=== PATIENT | male | born 1950 | race Caucasian/White ===

== ENCOUNTER 2019-12-28 20:32 | Emergency (ER) | payer BC ==
[~2019-12-28] VITALS: Ht 175.3 cm; Wt 73.5 kg
[2019-12-28] MEDS ORDERED: IV NORMAL SALINE 1000 ML BAG IV ONE (20:45)
[2019-12-28] MEDS ORDERED: ONDANSETRON 4 MG/2 ML VIAL IV ONE (21:00)
[2019-12-28] MEDS ORDERED: IV NS 1000 ML 1,000 ML IV ONE (21:00)
[2019-12-28] MEDS ORDERED: KETOROLAC TROMETHAMINE 30 MG INJ IVP ONE (21:00)
[2019-12-28 21:13] LABS: BASOPHILS % (AUTO) 0.2 % (0.0-2.0); EOSINOPHILS # (AUTO) 0.1 K/uL (0.0-0.7); EOSINOPHILS % (AUTO) 0.7 % (0.0-7.0); HEMATOCRIT 42.4 % (36.7-47.1); HEMOGLOBIN 14.7 g/dL (12.5-16.3); LYMPHOCYTES % (AUTO) 28.4 % (20.5-51.5); MEAN CORPUSCULAR HEMOGLOBIN 30.2 uug (23.8-33.4); MEAN CORPUSCULAR HGB CONC 35 g/dL (32.5-36.3); MEAN CORPUSCULAR VOLUME 87.1 fL (73.0-96.2); MONOCYTES # (AUTO) 0.9 K/uL (2.0-10.0); MONOCYTES % (AUTO) 8.4 % (0.0-11.0); NEUTROPHILS # (AUTO) 6.6 K/uL (1.8-8.9); NEUTROPHILS % (AUTO) 62.3 % (38.5-71.5); PLATELET COUNT (AUTO) 158 K/uL (152-348); RED BLOOD CELL COUNT(AUTO) 4.86 MIL/uL (4.06-5.63); WHITE BLOOD COUNT (AUTO) 10.6 K/uL (3.6-10.2)
[2019-12-28] MEDS ORDERED: ONDANSETRON 4 MG/2 ML VIAL ONE (21:21)
[2019-12-28] MEDS ORDERED: KETOROLAC TROMETHAMINE 30 MG INJ ONE (21:21)
[2019-12-28 21:22] LABS: CREATININE 1.2 mg/dL (0.6-1.3); POTASSIUM 3.5 mmol/L (3.5-5.1)
[2019-12-28 21:28] LABS: BILIRUBIN,DIRECT 0.2 mg/dL (0.0-0.2); BILIRUBIN,TOTAL 0.7 mg/dL (0.2-1.0); TOTAL PROTEIN, SERUM 7.6 g/dL (6.4-8.2)
--- NOTE | 2019-12-28 21:31 | NUR ---
PT IS IN ROOM #2B. DR SMITH EVALUATED THE PT.
[2019-12-28] MEDS ORDERED: ATROPINE SULFATE 1 MG/10 ML DISP.SYRIN ONE (22:09)
[2019-12-28] MEDS ORDERED: ATROPINE SULFATE 1 MG/10 ML DISP.SYRIN IV ONE (22:15)
[2019-12-28 22:47] LABS: *BILIRUBIN,URIN NEGATIVE (NEGATIVE); *BLOOD, URINE NEGATIVE (NEGATIVE); *CLARITY,URINE CLEAR (CLEAR); *COLOR,URINE YELLOW (YELLOW); *KETONES,URINE 2+ (NEGATIVE); *UROBILINOGEN,URINE 0.2 E.U./dl (NORMAL); LEUKOCYTE ESTERASE ,URINE NEGATIVE (NEGATIVE); NITRITE, URINE NEGATIVE (NEGATIVE); PH,URINE 5.5 (5.0-8.0); UGLUCOSE TRACE (NEGATIVE)
[2019-12-28 22:58] LABS: BACTERIA,URINE NONE SEEN /HPF (NONE SEEN); MUCUS,URINE FEW /LPF (0-FEW); RBC,URINE 0-3 /HPF (0-3); SQUAMOUS EPITHELIAL CELL,UR FEW /HPF (NONE SEEN); URINE AMORPHOUS URATE FEW /HPF
--- NOTE | 2019-12-29 00:17 | NUR ---
PT WAS D/C'd TO HOME. D/C INSTRUCTIONS GIVEN TO THE PT BY DR SMITH.
[2019-12-29 00:19] VITALS: BP 146/79
== END 2019-12-29 00:28 | disposition home or self-care (01) ==
LOC: ER 20:35
DX: R10.12 Left upper quadrant pain (principal); N20.0 Calculus of kidney; R11.10 Vomiting, unspecified; R61 Generalized hyperhidrosis
CPT/HCPCS: 36415; 74176; 76770; 80048; 80076; 81000; 81001; 83605; 83690; 84484; 85025; 93005; 96361; 96374; 96375; 99285; J0461; J1885; J2405; 70030-TC; A4663

== ENCOUNTER 2019-12-29 15:49 | Inpatient (IN) | payer BC ==
[~2019-12-29] VITALS: Ht 172.7 cm; Wt 73.9 kg
--- NOTE | 2019-12-29 16:25 | NUR ---
Patient ambulated with stable gait. Speech is clear, speaks in complete sentences. No acute neuro deficits. A/Ox4. Patient came for c/o similar presentation to yesterdays symptoms of pain. Respiratory even and unlabored, no cough no sob. Denies any cp. Denies any n/v/d. Patient in bed at lowest position, sr upx2, call light within reach. Fall precautions implemented per protocol.
[2019-12-29 16:26] LABS: BASOPHILS % (AUTO) 0.2 % (0.0-2.0); EOSINOPHILS # (AUTO) 0.1 K/uL (0.0-0.7); EOSINOPHILS % (AUTO) 1.5 % (0.0-7.0); HEMATOCRIT 40.5 % (36.7-47.1); HEMOGLOBIN 13.9 g/dL (12.5-16.3); LYMPHOCYTES % (AUTO) 36.2 % (20.5-51.5); MEAN CORPUSCULAR HGB CONC 34 g/dL (32.5-36.3); MEAN CORPUSCULAR VOLUME 87.6 fL (73.0-96.2); MONOCYTES # (AUTO) 0.7 K/uL (2.0-10.0); MONOCYTES % (AUTO) 8.6 % (0.0-11.0); NEUTROPHILS # (AUTO) 4.4 K/uL (1.8-8.9); NEUTROPHILS % (AUTO) 53.5 % (38.5-71.5); PLATELET COUNT (AUTO) 142 K/uL (152-348); RED BLOOD CELL COUNT(AUTO) 4.62 MIL/uL (4.06-5.63); WHITE BLOOD COUNT (AUTO) 8.3 K/uL (3.6-10.2)
[2019-12-29 16:38] LABS: BILIRUBIN,DIRECT 0.2 mg/dL (0.0-0.2); BILIRUBIN,TOTAL 0.5 mg/dL (0.2-1.0); CREATININE 1.2 mg/dL (0.6-1.3); TOTAL PROTEIN, SERUM 6.9 g/dL (6.4-8.2)
[2019-12-29 16:43] LABS: *BILIRUBIN,URIN NEGATIVE (NEGATIVE); *BLOOD, URINE NEGATIVE (NEGATIVE); *CLARITY,URINE CLEAR (CLEAR); *COLOR,URINE YELLOW (YELLOW); *KETONES,URINE NEGATIVE (NEGATIVE); *UROBILINOGEN,URINE 0.2 E.U./dl (NORMAL); LEUKOCYTE ESTERASE ,URINE NEGATIVE (NEGATIVE); NITRITE, URINE NEGATIVE (NEGATIVE); UGLUCOSE NEGATIVE (NEGATIVE)
[2019-12-29] MEDS ORDERED: LIDOCAINE VISCUS 2% 15 ML UDC ONE (17:22)
[2019-12-29] MEDS ORDERED: MAG HYDROX/AL HYDROX/SIMETH 30 ML LIQUID UDC ONE (17:22)
[2019-12-29] MEDS ORDERED: HYDROCODONE/APAP 10-325 MG TABLET ONE (17:31)
[2019-12-29] MEDS ORDERED: KETOROLAC TROMETHAMINE 30 MG INJ ONE (17:31)
[2019-12-29] MEDS ORDERED: KETOROLAC TROMETHAMINE 30 MG INJ IVP ONE (18:00)
[2019-12-29] MEDS ORDERED: KETOROLAC TROMETHAMINE 30 MG INJ IM ONE (18:00)
[2019-12-29] MEDS ORDERED: HYDROCODONE/APAP 10-325 MG TABLET PO ONE (18:00)
[2019-12-29] MEDS ORDERED: SWABABLE VALVE TRANSFER SET EA MC ONE (18:14)
[2019-12-29] MEDS ORDERED: IOHEXOL 300MG/ML 100 ML INFUS..BTL ONE (18:15)
[2019-12-29] MEDS ORDERED: IV NORMAL SALINE 250 ML IV ONE (18:15)
--- NOTE | 2019-12-29 19:10 | NUR ---
Report given to JAYJAY Parker
--- NOTE | 2019-12-29 20:14 | NUR ---
[facility] called for admission ([facility] [place]) dx: symptomatic bradycardia (arryhythmia, stable) call for bed done
[2019-12-29] MEDS ORDERED: IV NS 1000 ML 1,000 ML IV ONE (21:00)
[2019-12-29] MEDS ORDERED: PIPERACILLIN SODIUM/TAZOBACTAM 3.375 G in IV DEXTROSE 5% 50 ML IV ONE (21:00)
--- NOTE | 2019-12-29 21:16 | NUR ---
PENDING CALL BACK FR DR LUZ (SURGERY)
[2019-12-29] MEDS ORDERED: PIPERACILLIN/TAZOBACTAM/D5W 50 ML IV ONE (21:18)
--- NOTE | 2019-12-29 21:31 | NUR ---
DR LUZ ON THE PHONE W/ ERMD
--- NOTE | 2019-12-29 22:26 | NUR ---
Dr. Belle on the phone with Dr. Adair
--- NOTE | 2019-12-29 22:50 | NUR ---
BELONGINGS LIST ACCOUNTED FOR
--- NOTE | 2019-12-29 22:52 | NUR ---
HAND OFF AND SBAR GIVEN TO ADDISON (CREAM TESTER) PT OK TO ADMIT TO TELE RM 303 DX: SYMPTOMATIC GALI (STABLE) UNDER KERZUMA WITH SURGICAL CONSULT TO DR LUZ
--- NOTE | 2019-12-29 23:00 | NUR ---
PATIENT REFUSED REPEAT TROPONIN LAB WORKS, ENCOURAGED PATIENT TO HAVE LAB WORKS BUT STRONGLY REFUSED. PATIENT ALERT ORIENTED, UNDERSTAND THE RISK AND BENEFITS OF REFUSING LAB WORKS. Addendum: 12/30/19 at 0512 by GERARD VARGAS RN PATIENT REFUSED REPEAT TROPONIN LAB WORKS, ENCOURAGED PATIENT TO HAVE LAB WORKS BUT STRONGLY REFUSED. PATIENT ALERT ORIENTED, UNDERSTAND THE RISK AND BENEFITS OF REFUSING LAB WORKS, CHARTING IN ERROR.
--- NOTE | 2019-12-29 23:05 | NUR ---
TRANSPORTED BY ERN VIA RCOLLINGSWOOD W/ L AC G20 INTACT AND INFUSING WELL
[2019-12-29] MEDS ORDERED: ONDANSETRON 4 MG/2 ML VIAL IV PRN (23:15)
[2019-12-29] MEDS ORDERED: ZOLPIDEM 5 MG TABLET PO PRN (23:15)
[2019-12-29] MEDS ORDERED: Z GUARD REMEDY PASTE 57 GM TUBE TOP PRN (23:15)
[2019-12-29] MEDS ORDERED: ACETAMINOPHEN 325 MG TABLET PO PRN (23:15)
[2019-12-29] MEDS ORDERED: HYDROCODONE/APAP 5-325MG TABLET PO PRN (23:15)
[2019-12-29] MEDS ORDERED: MORPHINE SULFATE 2 MG/1 ML DISP.SYRIN IV PRN (23:15)
[2019-12-29] MEDS ORDERED: MAGNESIUM HYDROXIDE 30 ML LIQUID UDC PO PRN (23:15)
--- NOTE | 2019-12-29 23:30 | NUR ---
ADMITTED PATIENT IN TELE FLOOR UNDER THE CARE OF MARY MARTINEZMD HEAD CHEF. PATIENT ALERT ORIENTED SPEAK AUSTRALIAN BUT UNDERSTAND TANZANIAN, PATIENT TELE MONITOR SINUS RHYTHM AT THIS TIME. PATIENT WAS INSTRUCTED THAT HE'S GOING TO BE NPO PER MD ORDER. PATIENT HAS NO COMPLAIN OF PAIN AT THIS TIME, CONT TO MONITOR.
[2019-12-29 23:36] VITALS: BP 170/81
[2019-12-30] MEDS ORDERED: PIPERACILLIN SODIUM/TAZOBACTAM 3.375 G in IV DEXTROSE 5% 50 ML IV SCH ×2
--- NOTE | 2019-12-30 | NUR ---
PATIENT REFUSED LAB WORKS, TROPONIN, EXPLAINED RISK AND BENEFITS.
[2019-12-30] MEDS ORDERED: PIPERACILLIN SODIUM/TAZO 3.375 GM VIAL ONE (00:07)
[2019-12-30] MEDS: IV D5 1/2 NS 1000 ML 1,000 ML IV PRN ×2 (00:49→13:53)
[2019-12-30 02:26] VITALS: BP 131/62
[2019-12-30] MEDS ORDERED: PIPERACILLIN SODIUM/TAZOBACTAM 3.375 G in IV DEXTROSE 5% 50 ML IV ONE (03:22)
[2019-12-30 04:04] VITALS: BP 134/72
--- NOTE | 2019-12-30 06:23 | NUR ---
PATIENT ALERT ORIENTED, SPEAK B[place], TELE MONITOR SINUS RHYTHM SINUS GALI LOW 60'S. PATIENT HAS NO SOB NO CHEST PAIN, COMPLAIN OF ABDOMINAL PAIN BUT REFUSED TO TAKE PAIN MEDICATIONS, SAID HE CAN TOLERATE PAIN AT THIS TIME. PATIENT REMAINS NPO, CONT TO MONITOR.
[2019-12-30 06:35] LABS: BASOPHILS % (AUTO) 0.1 % (0.0-2.0); EOSINOPHILS # (AUTO) 0.2 K/uL (0.0-0.7); EOSINOPHILS % (AUTO) 1.9 % (0.0-7.0); HEMATOCRIT 38.2 % (36.7-47.1); HEMOGLOBIN 13.2 g/dL (12.5-16.3); LYMPHOCYTES # (AUTO) 3.4 K/uL (20.0-40.0); LYMPHOCYTES % (AUTO) 42.7 % (20.5-51.5); MEAN CORPUSCULAR HEMOGLOBIN 30.1 uug (23.8-33.4); MEAN CORPUSCULAR HGB CONC 35 g/dL (32.5-36.3); MEAN CORPUSCULAR VOLUME 86.9 fL (73.0-96.2); MONOCYTES # (AUTO) 0.6 K/uL (2.0-10.0); MONOCYTES % (AUTO) 7.8 % (0.0-11.0); NEUTROPHILS # (AUTO) 3.7 K/uL (1.8-8.9); NEUTROPHILS % (AUTO) 47.5 % (38.5-71.5); PLATELET COUNT (AUTO) 146 K/uL (152-348); RED BLOOD CELL COUNT(AUTO) 4.39 MIL/uL (4.06-5.63); WHITE BLOOD COUNT (AUTO) 7.9 K/uL (3.6-10.2)
[2019-12-30 07:45] LABS: PHOSPHOROUS 2.8 mg/dL (2.5-4.9)
--- NOTE | 2019-12-30 07:57 | NUR ---
Awake, alert, oriented x 4. NPO instructed but patient, complaining of being hungry. IVF infusing. Discussed plan of care
[2019-12-30 08:19] LABS: THYROID STIMULATING HORMONE 1.359 mIU/mL (0.358-3.740)
[2019-12-30] MEDS: ASPIRIN EC 81 MG TABLET.DR PO SCH (09:00)
[2019-12-30] MEDS: PANTOPRAZOLE SODIUM 40 MG VIAL IV SCH (09:13)
[2019-12-30] MEDS ORDERED: BUPIVACAINE/EPI PF 0.25% 30 ML VIAL ONE (10:56)
--- NOTE | 2019-12-30 11:00 | NUR ---
Consent for laparoscopic possible open cholecystectomy signed by patient. NPO maintained. To OR by bed.
[2019-12-30] MEDS ORDERED: HYDROMORPHONE 2 MG/1 ML DISP.SYRIN ONE (11:12)
[2019-12-30] MEDS ORDERED: ROCURONIUM BROMIDE 50 MG/5 ML VIAL ONE (11:12)
[2019-12-30 13:23] VITALS: BP 151/82
--- NOTE | 2019-12-30 13:50 | NUR ---
Received this s/p laparoscopic cholecystectomy by bed. Vital signs taken and recorded. IVF resumed and Zosyn restarted. Lap site x 3, umbilical area with scant blood. ZACH to bulb suction sanguinous output.
[2019-12-30 13:52] VITALS: BP 139/67
[2019-12-30] MEDS: PIPERACILLIN/TAZOBACTAM/D5W 3.375 G in IV DEXTROSE 5% 50 ML IV SCH ×2 (13:53→20:45)
[2019-12-30] MEDS ORDERED: DEXAMETHASONE SOD PHOSPHATE 4 MG INJ IV ONE (15:22)
[2019-12-30] MEDS ORDERED: GLYCOPYRROLATE 0.2 MG/ML VIAL MC ONE (15:22)
[2019-12-30] MEDS ORDERED: SEVOFLURANE 250 ML BOTTLE IH ONE (15:22)
[2019-12-30] MEDS ORDERED: LIDOCAINE-MPF 2% 5 ML VIAL MC ONE (15:22)
[2019-12-30] MEDS ORDERED: ONDANSETRON 4 MG/2 ML VIAL IV ONE (15:22)
[2019-12-30] MEDS ORDERED: PROPOFOL 200 MG/20 ML BOTTLE IV ONE (15:22)
[2019-12-30] MEDS ORDERED: NEOSTIGMINE METHYLSULFATE 10 MG/10 ML VIAL IV ONE (15:22)
--- NOTE | 2019-12-30 15:30 | NUR ---
Saline lock pulled out accidentally. Reinserted, IVF resumed.
[2019-12-30 15:55] VITALS: BP 144/75
--- NOTE | 2019-12-30 18:20 | NUR ---
Started on clear liquid diet, tolerated. Denies pain. Afebrile. IVF infusing.
[2019-12-30 20:00] VITALS: BP 140/75
[2019-12-31] VITALS: BP 151/80
--- NOTE | 2019-12-31 04:00 | NUR ---
PERSONNEL GENERALIST MANAGER found patient with JPEG drainage on patient clothes. RN checked the drainage site, but not leaking. JPEG was also found to have been open by patient. the bulb was not squeezed when I found it at this time. RN squeezed it last at 0000 when it was drained.
[2019-12-31] MEDS: PIPERACILLIN/TAZOBACTAM/D5W 3.375 G in IV DEXTROSE 5% 50 ML IV SCH ×3 (04:04→20:36)
[2019-12-31 04:56] VITALS: BP 158/81
--- NOTE | 2019-12-31 05:08 | NUR ---
patient received lying in bed with at beside. v/s stable and no signs of acute distress throughout shift. afebrile. safety and comfort measures provided. bed in lowest position, side rails up x2, bed alarm on. started second IV line on right upper arm for zosyn. patient refused to have PIV on left arm. DVT pumps on. will continue to monitor and endorse to morning nurse.
--- NOTE | 2019-12-31 06:30 | NUR ---
JPEG DRAINAGE AT 50ML THIS MORNING. IVF RUNNING AT 125ML/HR ON MY SHIFT. Addendum: 12/31/19 at 0655 by ADELIA GRIFFIN RN PIV 500ML REMAINING IN BAG.
[2019-12-31 07:18] LABS: BASOPHILS % (AUTO) 0.1 % (0.0-2.0); EOSINOPHILS % (AUTO) 0.5 % (0.0-7.0); HEMATOCRIT 38.3 % (36.7-47.1); HEMOGLOBIN 13.3 g/dL (12.5-16.3); LYMPHOCYTES # (AUTO) 3.3 K/uL (20.0-40.0); LYMPHOCYTES % (AUTO) 36.7 % (20.5-51.5); MEAN CORPUSCULAR HEMOGLOBIN 30.6 uug (23.8-33.4); MEAN CORPUSCULAR HGB CONC 35 g/dL (32.5-36.3); MEAN CORPUSCULAR VOLUME 87.8 fL (73.0-96.2); MONOCYTES # (AUTO) 0.7 K/uL (2.0-10.0); MONOCYTES % (AUTO) 7.8 % (0.0-11.0); NEUTROPHILS # (AUTO) 4.9 K/uL (1.8-8.9); NEUTROPHILS % (AUTO) 54.9 % (38.5-71.5); PLATELET COUNT (AUTO) 161 K/uL (152-348); RED BLOOD CELL COUNT(AUTO) 4.36 MIL/uL (4.06-5.63); WHITE BLOOD COUNT (AUTO) 8.9 K/uL (3.6-10.2)
[2019-12-31 08:00] LABS: BILIRUBIN,DIRECT 0.1 mg/dL (0.0-0.2); BILIRUBIN,TOTAL 0.5 mg/dL (0.2-1.0); CREATININE 1.1 mg/dL (0.6-1.3); TOTAL PROTEIN, SERUM 6.5 g/dL (6.4-8.2)
--- NOTE | 2019-12-31 08:00 | NUR ---
awake alert and oriented, able to communicate with Croatian, explained plan of care and verbalized understanding plan of care, scope sites with bandaid- dry and intact, ZACH bulb compressed for suction- reddish drainage noted, site leaking- changed dressing, states passed gas and had BM this am, safety measures maintained, call light within reach
[2019-12-31 08:13] LABS: POTASSIUM 4.2 mmol/L (3.5-5.1)
[2019-12-31] MEDS: PANTOPRAZOLE SODIUM 40 MG VIAL IV SCH (08:16)
[2019-12-31] MEDS: ASPIRIN EC 81 MG TABLET.DR PO SCH (08:16)
--- NOTE | 2019-12-31 08:30 | NUR ---
Dr Belle called and informed of lab reults and ZACH site leaking- with order
[2019-12-31 11:01] VITALS: BP 136/71
--- NOTE | 2019-12-31 13:00 | NUR ---
ambulated in the hallway-tolerated well
[2019-12-31] MEDS: IV D5 1/2 NS 1000 ML 1,000 ML IV PRN ×2 (14:51→22:20)
[2019-12-31 15:42] VITALS: BP 141/87
[2019-12-31] MEDS: NYSTATIN SUSPENSION 5 ML LIQUID UDC PO SCH ×2 (17:32→21:25)
--- NOTE | 2019-12-31 18:33 | NUR ---
no distress noted, ZACH bulb compressed for suction- total output this shift 75ml- reddish/pinkish, all needs attended and met- call light within reach
[2019-12-31 20:30] VITALS: BP 137/77
[2019-12-31 23:47] VITALS: BP 158/80
[2020-01-01] MEDS: IV D5 1/2 NS 1000 ML 1,000 ML IV PRN (03:51)
[2020-01-01] MEDS: PIPERACILLIN/TAZOBACTAM/D5W 3.375 G in IV DEXTROSE 5% 50 ML IV SCH (04:03)
[2020-01-01 04:21] VITALS: BP 140/80
--- NOTE | 2020-01-01 05:39 | NUR ---
patient slept intermittently. no signs of acute distress. v/s stable at this time. all needs met. safety and comfort measures provided. will continue to monitor.
[2020-01-01] MEDS ORDERED: PANTOPRAZOLE SODIUM 40 MG TABLET.DR PO SCH (07:00)
[2020-01-01 07:02] LABS: BASOPHILS % (AUTO) 0.2 % (0.0-2.0); EOSINOPHILS # (AUTO) 0.1 K/uL (0.0-0.7); HEMATOCRIT 37.3 % (36.7-47.1); HEMOGLOBIN 12.8 g/dL (12.5-16.3); LYMPHOCYTES # (AUTO) 3.1 K/uL (20.0-40.0); LYMPHOCYTES % (AUTO) 38.7 % (20.5-51.5); MEAN CORPUSCULAR HEMOGLOBIN 30.2 uug (23.8-33.4); MEAN CORPUSCULAR HGB CONC 34 g/dL (32.5-36.3); MONOCYTES # (AUTO) 0.6 K/uL (2.0-10.0); MONOCYTES % (AUTO) 7.5 % (0.0-11.0); NEUTROPHILS # (AUTO) 4.2 K/uL (1.8-8.9); NEUTROPHILS % (AUTO) 52.6 % (38.5-71.5); PLATELET COUNT (AUTO) 182 K/uL (152-348); RED BLOOD CELL COUNT(AUTO) 4.24 MIL/uL (4.06-5.63)
[2020-01-01 07:19] LABS: BILIRUBIN,TOTAL 0.5 mg/dL (0.2-1.0); POTASSIUM 3.8 mmol/L (3.5-5.1); TOTAL PROTEIN, SERUM 6.2 g/dL (6.4-8.2)
--- NOTE | 2020-01-01 08:00 | NUR ---
Sleeping, appears comfortable. IVF infusing
[2020-01-01] MEDS: NYSTATIN SUSPENSION 5 ML LIQUID UDC PO SCH ×2 (08:52→13:10)
[2020-01-01] MEDS: ASPIRIN EC 81 MG TABLET.DR PO SCH (08:52)
--- NOTE | 2020-01-01 10:38 | NUR ---
Dr. Belle seen and examined patient. ZACH removed, dressing applied. Lap sites dressing removed.
[2020-01-01 11:10] VITALS: BP 135/73
[2020-01-01 15:10] VITALS: BP 132/67
--- NOTE | 2020-01-01 16:31 | NUR ---
With discharge order to home. Saline lock removed. Tele removed. Prescription and DC instruction given, verbalized understanding. Went home per ambulatory per patient's request, in fair condition, not in distress, afebrile.
== END 2020-01-01 16:25 | disposition home or self-care (01) | DRG 418 ==
LOC: ER 15:49 → TELE3 22:52
PROVIDERS: ADMIT Student in an Organized Health Care Education/Training Program; ATTEND Student in an Organized Health Care Education/Training Program
PROC: 0FT44ZZ Resection of Gallbladder, Percutaneous Endoscopic Approach (ICD-10-PCS; principal; 2019-12-30)
DX: K80.12 Calculus of gallbladder with acute and chronic cholecystitis without obstruction (principal); E44.1 Mild protein-calorie malnutrition; K76.0 Fatty (change of) liver, not elsewhere classified; D69.6 Thrombocytopenia, unspecified; K66.0 Peritoneal adhesions (postprocedural) (postinfection); Z87.442 Personal history of urinary calculi; K82.8 Other specified diseases of gallbladder; N20.0 Calculus of kidney; M47.817 Spondylosis without myelopathy or radiculopathy, lumbosacral region; R00.1 Bradycardia, unspecified; E11.9 Type 2 diabetes mellitus without complications
CPT/HCPCS: 36415; 70030-TC; 71275; 76770; 83690; 83735; 84100; 84443; 85025; 85610; 85730; 87070; 87075; 87086; 87400; 93005; 93307; A4663; C9113; G0378; J1100; J1170; J1885; J2405; J2543; J2710; J3490; J7030; J7040; J7050; J7060; Q9967

== ENCOUNTER 2025-01-25 19:42 | Emergency (ER) | payer OTHER, BC ==
[~2025-01-25] VITALS: Ht 175.3 cm; Wt 76.2 kg
[~2025-01-25 19:42] MED LIST: AMOX-430 PO
[2025-01-25 20:38] LABS: BASOPHILS % (AUTO) 0.1 % (0.0-2.0); DIFFERENTIAL COMMENT 1; EOSINOPHILS # (AUTO) 0.1 K/uL (0.0-0.7); EOSINOPHILS % (AUTO) 0.4 % (0.0-7.0); HEMATOCRIT 42.9 % (36.7-47.1); HEMOGLOBIN 15.1 g/dL (12.5-16.3); LYMPHOCYTES # (AUTO) 8.6 K/uL (0.8-4.8); LYMPHOCYTES % (AUTO) 54.5 % (20.5-51.5); MEAN CORPUSCULAR HEMOGLOBIN 31.1 uug (23.8-33.4); MEAN CORPUSCULAR HGB CONC 35 g/dL (32.5-36.3); MEAN CORPUSCULAR VOLUME 88.5 fL (73.0-96.2); MONOCYTES # (AUTO) 0.6 K/uL (0.1-1.30); MONOCYTES % (AUTO) 3.8 % (0.0-11.0); NEUTROPHILS # (AUTO) 6.5 K/uL (1.8-8.9); NEUTROPHILS % (AUTO) 41.2 % (38.5-71.5); PLATELET COUNT (AUTO) 135 K/uL (152-348); RED BLOOD CELL COUNT(AUTO) 4.85 MIL/uL (4.06-5.63); RED CELL DISTRIBUTION WIDTH 13.1 % (12.1-16.2); WHITE BLOOD COUNT (AUTO) 15.7 K/uL (3.6-10.2)
[2025-01-25 20:51] LABS: ALANINE AMINOTRANSFERASE 51 U/L (16-63); ALBUMIN 3.9 g/dL (3.4-5.0); ALKALINE PHOSPHATASE 64 U/L (50-136); ASPARTATE AMINOTRANSFERASE 20 U/L (15-37); BILIRUBIN,TOTAL 0.4 mg/dL (0.2-1.0); CALCIUM 9.8 mg/dL (8.5-10.1); CARBON DIOXIDE 27 mmol/L (21-32); CHLORIDE 104 mmol/L (98-107); GLUCOSE 390 mg/dL (74-106); POTASSIUM 4.2 mmol/L (3.5-5.1); SODIUM SERUM 139 mmol/L (136-145); TOTAL PROTEIN, SERUM 6.9 g/dL (6.4-8.2); UREA NITROGEN, BLOOD 18 mg/dL (7-18)
[2025-01-25 20:53] LABS: ACETONE, SERUM NEGATIVE (NEGATIVE)
[2025-01-25 22:31] VITALS: BP 145/87; TEMP 98; O2SAT 96
== END 2025-01-25 22:31 | disposition home or self-care (01) ==
LOC: ER 19:42
DX: S30.0XXA Contusion of lower back and pelvis, initial encounter (principal); S50.312A Abrasion of left elbow, initial encounter; S60.412A Abrasion of right middle finger, initial encounter; R03.0 Elevated blood-pressure reading, without diagnosis of hypertension; R10.2 Pelvic and perineal pain; R73.9 Hyperglycemia, unspecified; V43.52XA Car driver injured in collision with other type car in traffic accident, initial encounter; Y93.89 Activity, other specified; Y92.488 Other paved roadways as the place of occurrence of the external cause; Y99.8 Other external cause status
CPT/HCPCS: 36415; 72192; 85025; A4606; A4663